=== PATIENT | female | born 2000 | race Caucasian/White ===

== ENCOUNTER 2021-03-12 09:13 | Outpatient (CLI) | payer OTHER | END 2021-03-12 09:14 | disposition home or self-care (01) | LOC: CTENTCT 09:13 | PROVIDERS: ATTEND Student in an Organized Health Care Education/Training Program | DX: J32.8 Other chronic sinusitis (principal) | CPT/HCPCS: 70486 ==

== ENCOUNTER 2021-06-27 08:04 | Outpatient (CLI) | payer OTHER ==
[2021-06-27 10:50] LABS: BHCG - Serum Negative (NEGATIVE); Pregs Control Background? CLEAR/WHITE (CLR/WHITE); Pregs Control Bar Appear? YES (CONTROL BAR)
[2021-06-27 18:25] LABS: SARS-CoV-2 PCR by NAA Not Detected (NotDetected)
== END 2021-06-27 08:05 | disposition home or self-care (01) ==
LOC: LABBT 08:04
PROVIDERS: ATTEND Student in an Organized Health Care Education/Training Program
DX: Z01.812 Encounter for preprocedural laboratory examination (principal); J32.0 Chronic maxillary sinusitis; J32.1 Chronic frontal sinusitis; J32.2 Chronic ethmoidal sinusitis; J34.3 Hypertrophy of nasal turbinates; R44.8 Other symptoms and signs involving general sensations and perceptions; J34.89 Other specified disorders of nose and nasal sinuses; Z20.822 Contact with and (suspected) exposure to COVID-19
CPT/HCPCS: 84703; 85014; U0003; U0005

== ENCOUNTER 2021-07-01 10:22 | Day surgery (SDC) | payer OTHER ==
[2021-06-25 15:24] VITALS: BMI 23.6
[2021-07-01] MEDS ORDERED: AFRIN NASAL MIST 15 ML BOT ONE ×2 (10:54→12:37)
[2021-07-01] MEDS ORDERED: Bacitracin Zinc Ointment 30 gm TUBE ONE (12:37)
[2021-07-01] MEDS ORDERED: Xylocaine 1% w/ Epi 1:100K 10 ML VIAL ONE (12:37)
[2021-07-01] MEDS ORDERED: Acetaminophen 500 MG TAB ONE (12:43)
[2021-07-01] MEDS ORDERED: Fentanyl 250 MCG/5 ML VIAL ONE (12:44)
[2021-07-01] MEDS ORDERED: Dexmedetomidine 200 MCG/2 ML VIAL ONE (12:44)
[2021-07-01] MEDS ORDERED: Propofol 1,000 MG/100 ML VIAL IV ONE (12:44)
[2021-07-01] MEDS ORDERED: PROPOFOL 200 MG/20 ML VIAL ONE (12:51)
[2021-07-01] MEDS ORDERED: Dexamethasone 20 MG/5 ML VIAL ONE (12:51)
[2021-07-01] MEDS ORDERED: Rocuronium Bromide 10 MG/ML (10ML VIAL) ONE (12:51)
[2021-07-01] MEDS ORDERED: Ketorolac Tromethamine 30 MG/ML VIAL ONE (12:51)
[2021-07-01] MEDS ORDERED: Ondansetron PF 4 MG/2 ML Vial ONE (12:51)
[2021-07-01] MEDS ORDERED: Lidocaine 1% PF 5 ML VIAL ONE (12:51)
[2021-07-01] MEDS ORDERED: Triamcinolone 40 MG/ML VIAL ONE ×2 (14:51→14:54)
[2021-07-01] MEDS ORDERED: HYDROcodone/Acetaminophen 5/325 mg Tablet ONE ×2 (17:02→17:24)
== END 2021-07-01 17:40 | disposition home or self-care (01) ==
LOC: SDC 10:22
PROVIDERS: ATTEND Student in an Organized Health Care Education/Training Program
PROC: 099Q8ZZ Drainage of Right Maxillary Sinus, Via Natural or Artificial Opening Endoscopic (ICD-10-PCS; principal; 2021-07-01)
PROC: 09BT8ZZ Excision of Left Frontal Sinus, Via Natural or Artificial Opening Endoscopic (ICD-10-PCS; principal; 2021-07-01)
PROC: 09BU8ZZ Excision of Right Ethmoid Sinus, Via Natural or Artificial Opening Endoscopic (ICD-10-PCS; principal; 2021-07-01)
PROC: 8E09XBZ Computer Assisted Procedure of Head and Neck Region (ICD-10-PCS; principal; 2021-07-01)
PROC: 099R8ZZ Drainage of Left Maxillary Sinus, Via Natural or Artificial Opening Endoscopic (ICD-10-PCS; principal; 2021-07-01)
PROC: 09BV8ZZ Excision of Left Ethmoid Sinus, Via Natural or Artificial Opening Endoscopic (ICD-10-PCS; principal; 2021-07-01)
PROC: 09BS8ZZ Excision of Right Frontal Sinus, Via Natural or Artificial Opening Endoscopic (ICD-10-PCS; principal; 2021-07-01)
PROC: 09BL8ZZ Excision of Nasal Turbinate, Via Natural or Artificial Opening Endoscopic (ICD-10-PCS; principal; 2021-07-01)
PROC: 099W8ZZ Drainage of Right Sphenoid Sinus, Via Natural or Artificial Opening Endoscopic (ICD-10-PCS; principal; 2021-07-01)
PROC: 099X8ZZ Drainage of Left Sphenoid Sinus, Via Natural or Artificial Opening Endoscopic (ICD-10-PCS; principal; 2021-07-01)
DX: J32.8 Other chronic sinusitis (principal); J34.3 Hypertrophy of nasal turbinates; J33.8 Other polyp of sinus
CPT/HCPCS: C1726; J1100; J1885; J2405; J2704; J3010; J3301